=== PATIENT | female | born 1985 | race Caucasian/White ===

== ENCOUNTER 2021-04-06 07:08 | Day surgery (SDC) | payer OTHER ==
[~2021-04-06] VITALS: Ht 167.6 cm; Wt 59.0 kg
--- NOTE | ~2021-04-06 | O ---
[facility] [place] [address] OPERATIVE REPORT Name: SESAR MORALES Room #: 150-3 [facility] M.R.#: [id number] Admission: 04/06/21 Attend Phys: Adi West MD Discharge: Date of : 83 Report #: [id number] THIS REPORT FOR: cc: Pernell Juárez MD, David R. MD Shapiro, Peter E. MD ~ DATE OF SERVICE: 04/06/2021 PREOPERATIVE DIAGNOSES: Deviated nasal septum with nasal airway obstruction, chronic maxillary and ethmoid sinusitis. POSTOPERATIVE DIAGNOSES: Deviated nasal septum with nasal airway obstruction, chronic maxillary and ethmoid sinusitis. OPERATIVE PROCEDURE: Nasal septoplasty, endoscopic bilateral maxillary antrostomy with removal of tissue, bilateral complete ethmoidectomy. ANESTHESIA: General by laryngeal mask. HISTORY OF PRESENT ILLNESS: The patient was taken to the operating room and placed in supine position. General anesthesia was induced by laryngeal mask. Once adequate general anesthesia was obtained, local nasal anesthesia was induced by submucoperichondrial injection 1% lidocaine with 1:100,000 epinephrine and topical application of cocaine solution. The patient was then draped in a sterile manner. The patient had nasal septal deviation primarily to the right side inferiorly into the middle meatus on the left side. A hemitransfixion incision was placed on the left side of the nose and the mucoperichondrial and mucoperiosteal was elevated off the septum. The cartilage was incised in front of the bony cartilaginous junction and a portion of cartilage and bone was removed from the mid portion of the septum. Along the floor, there was a septal spur consisting of hypertrophic cartilage and a fracture of the maxillary crest. The cartilage was removed using a long strip and the maxillary crest was then fractured and rongeur. After these maneuvers, the septum sent more in the midline. The hemitransfixion incision was then closed with 4-0 chromic suture and a 4-0 plain mattress suture was placed as well. The nasal endoscope was used to visualize the left nasal cavity and the middle turbinate was deviated medially. The uncinate process was removed using the microdebrider and the natural opening. The maxillary sinus was located. It was enlarged in a posterior inferior manner by removing the soft fontanelle and ethmoidectomy was performed by removing the ethmoidal bulla and then following the ethmoid air cells back to and through the basal lamella and then forward along the lamina papyracea and fovea with modalities to complete the ethmoidectomy anteriorly. Surgiflo was placed into the ethmoid cavity and middle meatus for hemostasis. The same procedure was performed on the right side. The patient tolerated the procedure well. [address] [address] OPERATIVE REPORT Name: SESAR MORALES Room #: 150-3 [facility] M.R.#: [id number] Admission: 04/06/21 Attend Phys: Adi West MD Discharge: Date of : 83 Report #: [id number] BLOOD LOSS: Approximately 50 mL. The patient was then awoken and taken to recovery room in stable condition for postoperative monitoring. By: [id number] Adi West MD /nt
[~2021-04-06 07:08] MED LIST: AMPHETAMINE SAL10 MG PO; LO LOESTRIN FE1 EACH PO
[2021-04-06 08:23] VITALS: BP 122/74
--- NOTE | 2021-04-06 10:40 | H ---
[facility] [place] [address] HISTORY AND PHYSICAL Name: SESAR MORALES Room #: 150-3 [facility] M.R.#: [id number] Admission: 04/06/21 Attend Phys: Adi West MD Discharge: Date of : 83 Report #: [id number] THIS REPORT FOR: cc: Pernell Juárez MD, David R. MD Shapiro, Peter E. MD ~ DATE OF SERVICE: 04/06/2021 HISTORY OF PRESENT ILLNESS: The patient developed significant left ear pain in June and was diagnosed with a sinus infection and placed on steroids and antibiotics. She has continued to have problems with sinus infections with nasal voice, congestion, and postnasal drainage. A CT scan of her sinuses shows a large septal spur protruding into the middle meatus on the right side at the mid portion. She has a small mucous retention cyst along the medial wall and floor of the left maxillary sinus with blockage of the ostiomeatal areas on both sides and fluid in the ethmoid sinuses posteriorly on both sides. PAST MEDICAL HISTORY: Otherwise not significant. MEDICATIONS: She takes no medications on a regular basis. ALLERGIES: She has no known drug allergies. PHYSICAL EXAMINATION: HEENT: She has a deviated nasal septum into the left middle meatus. Her oropharynx and oral cavity were clear. She had no adenopathy or masses in her neck. IMPRESSION: Deviated nasal septum with chronic maxillary and ethmoid sinusitis, causing nasal congestion and eustachian tube dysfunction with chronic sinus symptoms. PLAN: Nasal septoplasty, endoscopic bilateral maxillary antrostomies, and complete ethmoidectomies. <ELECTRONICALLY SIGNED> By: Adi West MD 04/06/21 [id number] Adi West MD /nt
[2021-04-06] MEDS ORDERED: NORCO7.5 PO (10:43)
[2021-04-06] MEDS ORDERED: CEPHALEXIN500 MG PO (10:43)
[2021-04-06 10:47] VITALS: BP 122/74
== END 2021-04-06 12:40 | disposition home or self-care (01) ==
LOC: TBA 07:08 → OR 07:08 → TBA 07:11 → OR 10:34
PROVIDERS: ATTEND Otolaryngology
DX: J34.2 Deviated nasal septum (principal); J34.89 Other specified disorders of nose and nasal sinuses; J32.0 Chronic maxillary sinusitis; J32.2 Chronic ethmoidal sinusitis; F32.9 Major depressive disorder, single episode, unspecified; F41.9 Anxiety disorder, unspecified; Z98.890 Other specified postprocedural states; Z79.899 Other long term (current) drug therapy; Z20.822 Contact with and (suspected) exposure to COVID-19
CPT/HCPCS: 50010; 50101; 50386; 50398; 51751; 56524; 56528; 56635; 62110; 62900; 64037; 70005